=== PATIENT | female | born 2005 | race Hispanic/Latino ===

== ENCOUNTER 2023-01-15 08:45 | Emergency (ER) | payer OTHER ==
[~2023-01-15] VITALS: Ht 157.5 cm; Wt 52.2 kg
[2023-01-15 08:51] VITALS: O2SAT 100
== END 2023-01-15 11:43 | disposition home or self-care (01) ==
LOC: ER 08:59
DX: M79.644 Pain in right finger(s) (principal); M60.241 Foreign body granuloma of soft tissue, not elsewhere classified, right hand; S50.811A Abrasion of right forearm, initial encounter; S10.81XA Abrasion of other specified part of neck, initial encounter; V43.62XA Car passenger injured in collision with other type car in traffic accident, initial encounter; Y92.488 Other paved roadways as the place of occurrence of the external cause
CPT/HCPCS: 81025; 99283